=== PATIENT | female | born 1955 | race Caucasian/White ===

== ENCOUNTER 2017-08-17 00:59 | Emergency (ER) | payer OTHER ==
[~2017-08-17] VITALS: Ht 167.6 cm; Wt 81.6 kg
[2017-08-17] MEDS ORDERED: LISINOPRIL10 MG PO (01:11)
[2017-08-17] MEDS ORDERED: ZYRTEC ALLERGY10 MG PO (01:12)
[2017-08-17] MEDS ORDERED: IBUPROFEN800 MG PO (01:12)
[2017-08-17] MEDS ORDERED: IMITREX100 MG PO (01:13)
--- NOTE | 2017-08-17 01:17 | Emergency Room Report ---
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 STARTED LAST NIGHT AT WORK. NUMBNESS AND ACHING IN RIGHT HAND AND WRIST. LEFT IS STIFF TOO BUT NO NUMBNESS. 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 N Clinical Suspician of Infection? N Mental Status: 1 - Regular (Normal Baseline) Sepsis Risk:Low Sepsis Risk Have you (or family members/close friends) recently traveled outside the [place]? N If Yes, where/when: Have you had exposure to infectious disease within the past month? N TB? Other? 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 She began noticing yesterday that her thumbs were stiff on both hands. Her RIGHT hand has progressively gotten worse so that she now has pain and stiffness in her hand and wrist. Pain radiates up her arm. Tonight at dinner she noticed that she was getting some numbness in the first 4 digits of her RIGHT hand, sparing the small finger. Symptoms seemed to improve with dangling of her RIGHT arm. She has not had this in the past. Tonight she went home and went to bed, but woke up with more severe pain and numbness and therefore came to the emergency department. She took a dose of ibuprofen yesterday. She looked up her symptoms on the Internet and was concerned that she was developing and arthritis, which the Internet said was usually due to an infection in the joint. She does not have swelling, redness, or fever. Her activity at work has not changed recently, but she did have increased activity using her hands and arms over the . She is right- hand dominant. ALLERGIES Coded Allergies: No Known Allergies (08/17/17) Home Medications Reported Medications Lisinopril 10 MG PO DAILY #30 Cetirizine Hcl (Zyrtec) 10 MG PO DAILY Ibuprofen (Ibuprofen 800MG) 200 MG PO Q6HP PRN PAIN Sumatriptan Succinate (Imitrex) 100 MG PO Q6HP PRN PAIN History Medical History General CAD? No Angina: No HI: No Hypertension? Yes Hyperlipidemia? No CHF? No DVT? No PE? No COPD? No Asthma? No Anemia? No GERD? No Gastric ulcers? No GI Bleed? No Hernia? No Thyroid Problems? No Hypothyroidism? No CVA? No Seizures? No Diabetes? No Renal Insuffiency? No End Stage Renal Disease? No UTI? No Stones? No BPH? No GB Disease: Yes Nephritic Syndrome? No Asplenia? No Hepatitis? No Sickle Cell Disease? No Arthritis? No Migraines? Yes Cataracts? No Glaucoma? No MRSA? No HIV? No TB? No Anxiety? No Depression? No Cancer? No More? No Immunization Hx Ped.Immunizations UTD Yes DT/Tetanus > 10 Years Ago Surgical Hx Previous Surgery?Y JACK TUBAL PLANTAR FACITITS L FOOT Social History Smoking Hx Smoker: Never Smoker Tobacco: No Are you/the child exposed to second-hand smoke: Yes Alcohol Alcohol: No Review of Systems All Other Systems Reviewed and Negative Constitutional denies fever Musculoskeletal joint pain Psychiatric/Neurological numbness Physical Exam Vital Signs Vital Signs Date Time Temp Pulse Resp B/P Pulse O2 O2 Flow FiO2 Ox Delivery Rate 08/17 0156 97.8 71 17 150/75 96 08/17 0155 97.8 71 17 150/75 96 08/17 0138 14 08/17 0104 97.7 81 18 174/67 99 General Appearance no apparent distress Respiratory Status No: respiratory distress. Cardiovascular regular rate/rhythm, normal peripheral pulses Extremities no erythema or heat of the joints of either upper extremity. She has a positive Tinel and a positive Phalen test of the RIGHT upper extremity. Normal pulses, capillary refill, warmth, and sensation. Neurologic alert, no motor/sensory deficits Medical Decision Making LABS/Meds/Orders Pt receiving controlled substance in ED? Yes Tom was queried for this patient? Yes Reason not queried - emergent pt cond=no time Results/Orders Current Medication Orders Sig/Sariah Start time Last Medication Dose Route Stop Time Status Admin Hydrocodone Bitart/ 0 .STK-MED ONE 08/17 133 DC Acetaminophen PO Ibuprofen 0 .STK-MED ONE 08/17 132 DC PO Hydrocodone Bitart/ 1 TAB ONCE ONE 08/17 130 DC 08/17 Acetaminophen PO 08/17 Ibuprofen 800 MG ONCE ONE 08/17 130 DC 08/17 PO 08/17 Orders Procedure Date/time Status STABILIZE JOINT 08/17 128 Active GEN NSG/PT REQ (NOT FOR MEDS!) 08/17 128 Active Departure Departure Disposition DC Home or Self Care(routine) Clinical Impression Primary Impression: Carpal tunnel syndrome Qualifiers: Laterality: bilateral Qualified Code: G56.03 - Carpal tunnel syndrome, bilateral upper limbs Condition STABLE Referrals SAMANTHA DEUTSCH APRN (Family) Patient Instructions DI for Carpal Tunnel Syndrome Additional Instructions Ibuprofen 600-800 mg 3 times a day. ED Critical Care Critical Care No at 0233
--- OUTSIDE RECORDS SUMMARY | 2017-08-17 01:32 | External Medical Summary Rpt | CCD ---
Author Author SALVATORE Address Unknown Phone Purpose Continuity of Care Document - through 2016
--- OUTSIDE RECORDS SUMMARY | 2017-08-17 01:32 | External Medical Summary Rpt | CCD ---
Author Author [employer] Organization [employer] Address Unknown Phone Unavailable Purpose Continuity of Care Document - through 2016
--- OUTSIDE RECORDS SUMMARY | 2017-08-17 01:32 | External Medical Summary Rpt | CCD ---
Author Author SALVATORE Address Unknown Phone [email or web address] Purpose Continuity of Care Document - through 2016
--- OUTSIDE RECORDS SUMMARY | 2017-08-17 01:33 | External Medical Summary Rpt | CCD ---
Demographics Preferred Language Mauritanian Marital Status Unknown Restorationist Affiliation Unknown Race Unknown Ethnic Group Unknown Author Author , SALVATORE CHASE Address Unknown Phone Immunization Unable to retrieve immunization data due to connection failure with Immunization Registry. Please try again later.
--- OUTSIDE RECORDS SUMMARY | 2017-08-17 01:33 | External Medical Summary Rpt | CCD ---
Demographics Preferred Language Uruguayan Marital Status Unknown Alevism Affiliation Unknown Race Unknown Ethnic Group Unknown Author Author , SALVATORE CHASE Address Unknown Phone Immunization Unable to retrieve immunization data due to connection failure with Immunization Registry. Please try again later.
--- OUTSIDE RECORDS SUMMARY | 2017-08-17 01:34 | External Medical Summary Rpt ---
Author Author SALVATORE Bell, [employer] Organization [employer] Address Unknown Phone Unavailable Payers Section Payer Plan Name Group ID Member ID Coverage Coverage Start End Date Date [facility] [id number] [phone] [id number] No No informati informati on in on in source source data data
--- OUTSIDE RECORDS SUMMARY | 2017-08-17 01:34 | External Medical Summary Rpt ---
Author Author SALVATORE Bell, [employer] Organization [employer] Address Unknown Phone Unavailable Payers Section Payer Plan Name Group ID Member ID Coverage Coverage Start End Date Date [facility] [phone] [id number] No No informati informati on in on in source source data data
[2017-08-17 01:56] VITALS: BP 150/75
== END 2017-08-17 01:56 | disposition home or self-care (01) ==
LOC: ER 00:59
PROC: 2W3DX1Z Immobilization of Left Lower Arm using Splint (ICD-10-PCS; principal; 2017-08-17)
PROC: 2W3CX1Z Immobilization of Right Lower Arm using Splint (ICD-10-PCS; principal; 2017-08-17)
DX: G56.03 Carpal tunnel syndrome, bilateral upper limbs (principal); I10 Essential (primary) hypertension